=== PATIENT | male | born 1965 | race Caucasian/White ===

== ENCOUNTER → 2016-04-03 | Outpatient (CLI) | payer BC ==
[~2016-04-03] MED LIST: OXYC-57 PO
--- NOTE | 2016-04-03 15:48 | DIAGNOSTIC IMAGING REPORT ---
RIGHT FIFTH FINGER HISTORY: RIGHT 5TH FINGER Right COMPARISON: None. FINDINGS: There is no fracture or dislocation. No bony erosions. On the oblique view there is a 5 mm focal area of prominence at the soft tissues of the distal fifth finger adjacent to the DIP joint. This may represent a soft tissue mass/cyst. No radiopaque foreign bodies. IMPRESSION: 1. No fractures within the right fifth finger. 2. A 5 mm focal soft tissue prominence adjacent to the DIP joint which may represent a soft tissue mass or cyst. No underlying bony erosion. Electronically signed by: Fernandez Ortiz M.D. 04/03/2016 3:47 PM Dictated Date/Time: 04/03/2016 3:45 PM
== END | disposition home or self-care (01) ==
LOC: C.RDSM 14:00
PROVIDERS: ATTEND Family Medicine
DX: M79.644 Pain in right finger(s) (principal)